=== PATIENT | male | born 1950 | race African-American/Black ===

== ENCOUNTER 2020-02-04 07:16 | Inpatient (IN) | payer OTHER ==
[2020-01-26 11:08] VITALS: BMI 25.7
[~2020-02-04 07:16] MED LIST: CELECOXIB 200 MG CAPSULE PO ONE; PANTOPRAZOLE 40 MG TABLET PO ONE; TRANEXAMIC ACID 1000 MG/10 ML VIAL IVPB ONE; VANCOMYCIN 1,000 MG VIAL (RESTRICTED TO ID ONLY) IVPB ONE; oxyCODONE HCL 10 MG SUSTAINED ACTING TABLET PO ONE
--- NOTE | 2020-02-04 07:34 | HP ---
Admitting History and Physical - Admission Chief Complaint: left knee osteoarthritis x years History of Present Illness: 69 year old male presents in regard to their left knee. Long-standing history of left knee osteoarthritis. Patient complains of pain, limited range of motion, difficulty ambulating, and difficulty with activities of daily living. Patient has failed conservative treatment options including PO medications, activity modification, injections, and exercise programs. At this point, patient like to proceed with surgical intervention, left total knee arthroplasty MAKOplasty. History Source: Patient - Past Medical History Cardiovascular: Yes: HTN, Mitral Stenosis Renal/: Yes: BPH Musculoskeletal: Yes: Osteoarthritis - Past Surgical History Additional Past Surgical History: See written history & physical. - Advance Directives Advance Directives: Yes: Health Care Proxy - Smoking History Smoking history: Never smoked Have you smoked in the past 12 months: No - Alcohol/Substance Use Hx Alcohol Use: Yes (RARELY) Home Medications - Allergies Allergies/Adverse Reactions: Allergies Allergy/AdvReac Type Severity Reaction Status Date / Time No Known Drug Allergies Allergy Verified 02/04/20 07:14 - Home Medications Home Medications: Ambulatory Orders Amlodipine Besylate 10 mg PO DAILY 01/26/20 Ibuprofen 800 mg PO ASDIR PRN 01/26/20 Tamsulosin HCl 0.4 mg PO HS 01/26/20 Review of Systems - Review of Systems Musculoskeletal: reports: Crepitus (left knee), Decreased ROM (left knee), Joint Pain (left knee), Joint Swelling (left knee) Physical Examination Vital Signs: Vital Signs Temperature 98.6 F 02/04/20 07:16 Pulse Rate 84 02/04/20 07:16 Respiratory Rate 16 02/04/20 07:16 Blood Pressure 124/75 02/04/20 07:16 O2 Sat by Pulse Oximetry (%) 97 02/04/20 07:26 Constitutional: Yes: Well Nourished, No Distress Eyes: Yes: Conjunctiva Clear HENT: Yes: Atraumatic Neck: Yes: Supple Cardiovascular: Yes: Regular Rate and Rhythm Respiratory: Yes: Regular Gastrointestinal: Yes: Soft ...Rectal Exam: Yes: Deferred Musculoskeletal: Yes: Joint Stiffness (left knee), Joint Swelling (left knee) Assessment/Plan 69 year old male presents in regard to their left knee. Long-standing history of left knee osteoarthritis. Patient complains of pain, limited range of motion, difficulty ambulating, and difficulty with activities of daily living. Patient has failed conservative treatment options including PO medications, activity modification, injections, and exercise programs. At this point, patient like to proceed with surgical intervention, left total knee arthroplasty MAKOplasty. Pros, cons, risks, benefits, and alternatives of a left total knee arthroplasty MAKOplasty were discussed with the patient at length. Patient confirms their understanding and consents to proceed with a left total knee arthroplasty MAKOplasty.
[2020-02-04] MEDS ORDERED: TRANEXAMIC ACID 1000 MG/10 ML VIAL IVPUSH ONE (08:28)
[2020-02-04] MEDS ORDERED: CEFAZOLIN 2 GM in DEXTROSE 5%-WATER - 50 ML IVPB ONE (08:28)
[2020-02-04] MEDS ORDERED: VANCOMYCIN 1,000 MG VIAL (RESTRICTED TO ID ONLY) IVPB ONE (11:15)
[2020-02-04] MEDS ORDERED: TRANEXAMIC ACID 1000 MG/10 ML VIAL IVPB ONE (11:30)
[2020-02-04] MEDS ORDERED: traMADol HCL 50 MG TABLET ONE (12:02)
[2020-02-04] MEDS ORDERED: KETOROLAC TROMETHAMINE 30 MG/1 ML VIAL ONE (12:02)
[2020-02-04] MEDS ORDERED: ACETAMINOPHEN INJECTION 100 ML IVPB ONE (12:03)
[2020-02-04] MEDS ORDERED: ACETAMINOPHEN 1000 MG/100 ML VIAL (NON FORMULARY) IVPB ONE (12:17)
[2020-02-04] MEDS ORDERED: MAGNESIUM HYDROX 2400MG/30ML ORAL SUSPENSION 30 ML CUP PO PRN (12:18)
--- NOTE | 2020-02-04 12:24 | OP ---
Operative Note - Note: Operative Date: 02/04/20 Pre-Operative Diagnosis: left knee OA Operation: left GARETT TKA Post-Operative Diagnosis: Same as Pre-op Surgeon: Jony Wild Program Production Specialist: Elvie Hendrix Anesthesia: Spinal Estimated Blood Loss (mls): 100
[2020-02-04] MEDS ORDERED: LACTATED RINGERS SOLUTION 1,000 ML IV SCH (12:30)
[2020-02-04] MEDS ORDERED: KETOROLAC TROMETHAMINE 30 MG/1 ML VIAL IVPUSH SCH (12:30)
[2020-02-04] MEDS ORDERED: traMADol HCL 50 MG TABLET PO SCH (12:30)
[2020-02-04] MEDS ORDERED: ONDANSETRON 4 MG/2 ML VIAL IVPUSH PRN (12:53)
[2020-02-04] MEDS ORDERED: oxyCODONE HCL 5 MG TABLET PO PRN ×2 (12:53)
[2020-02-04] MEDS ORDERED: PROMETHAZINE HCL 25 MG/1 ML VIAL IVPUSH PRN (12:53)
[2020-02-04] MEDS ORDERED: HYDROmorphone HCL CARPU-JECT 1 MG/1 ML DISP.SYRIN IVPB PRN (16:17)
[2020-02-04] MEDS: CEFAZOLIN 2 GM/D5W 2 GRAM/50 ML ML IVPB SCH (18:08)
--- NOTE | 2020-02-04 19:32 | SPEC ---
DATE OF OPERATION: 02/04/2020 PREOPERATIVE DIAGNOSIS: Left knee osteoarthritis. POSTOPERATIVE DIAGNOSIS: Left knee osteoarthritis. PROCEDURE: Left total knee replacement with MAKOplasty robotic navigation. ATTENDING: Sunita Anguiano MD BACTERIOLOGY TEACHER: JASON Cummins ANESTHESIA: Spinal plus sedation. ESTIMATED BLOOD LOSS: 100 mL COMPLICATIONS: None. DISPOSITION: The patient was transferred to the PACU in stable condition. IMPLANTS USED: Pana Triathlon size 6 femoral component, size 6 tibial component, 35-mm patellar component, 16-mm total stabilized polyethylene component. INDICATIONS: This is a 69-year-old male who presented to the office complaining of severe left knee pain. He was seen and examined by Dr. Anguiano and diagnosed with severe left knee osteoarthritis. The patient was initially treated conservatively with injections, medications, and physical therapy, but continued to have severe pain and ambulatory dysfunction. He was therefore indicated for a left total knee replacement. The risks, benefits, and alternatives to the procedure were explained to the patient in great detail. He elected to proceed with the surgery. DESCRIPTION OF PROCEDURE: On the day of surgery, the patient was taken to the operating room and placed on the OR table. Spinal anesthesia was administered by the anesthesiologist. The patient was then positioned supine on the table and all bony prominences were padded. The knee was then prepped and draped in the usual sterile fashion and intravenous antibiotics were given for infection prophylaxis. A surgical time-out was then performed with the team, and the patients identity, procedure, side, availability of implants, and the administration of antibiotics was confirmed. With the knee flexed, a midline incision was made and carried down through the subcutaneous fat to the underlying retinaculum. A medial parapatellar arthrotomy was performed. This was followed by a subperiosteal dissection of the tissue off the proximal, medial tibia. A portion of fat pad was removed from under the patellar tendon, and a small portion of fat was excised off the distal supracondylar femur. Electrocautery and an Aquamantys bipolar sealing device were used to achieve hemostasis. The knee was then flexed further and the anterior horn of the lateral meniscus was released from the midline. Next, the anterior and posterior cruciate ligaments were transected. Grade 4 changes were noted diffusely throughout the knee. Femoral and tibial checkpoints were then placed in the appropriate location using a mallet. Two parallel bicortical self-drilling pins were placed in the tibial diaphysis after making stab incisions and bluntly dissecting down to bone. Two pins were then placed in the distal supracondylar femur. The [employer] navigation arrays were then attached to both the femoral and tibial pins and the lower extremity was then registered to the robotic navigation device using various joint movements, as well as inputting several dozen reference points. The knee was then taken through a full range of motion with a corrective force applied. Alignment in varus/valgus as well as flexion/extension and soft tissue balance was measured in various positions. The navigation device showed a numerical and graphic representation of the soft tissue balance. The components were repositioned virtually using the software until optimal soft tissue balance was achieved on screen. Once this was accomplished, the final plan was saved and sent to the robot. Self-retaining retractors were then placed at the joint line for exposure and protection of the collateral ligaments. The robot was brought into the sterile field and registered with the navigation device. The robotic arm with attached oscillating saw blade was then used to perform femoral and tibial bone cuts as per the saved software plan. The femoral box cut was made using the appropriately sized manual cutting guide. The knee was then irrigated. Trial components were placed and the knee was taken through a full range of motion to assess soft tissue balance and alignment. The range of motion was found to be excellent and the soft tissue balance was optimal and according to plan. The knee was then put into extension and the patella everted. The synovium around the patella was circumscribed with electrocautery. A caliper was used to measure the patellar thickness and a saw was then used to resect the patella at the chondro-osseous junction. The cut surface was then sized and drilled for the appropriate patellar button, with care taken to medialize it. A trial patella was then placed and the knee was again taken through a full range of motion. The knee was found to have both good balance and good patellar tracking. All of the components were removed except the tibial base plate. The appropriate instrumentation was used to drill and punch the proximal tibia for the keel of the final component. All bony surfaces were then cleaned with pulsatile lavage and dried. Bone cement was then prepared on the back table, and final components were cemented in place in the usual fashion. Extruded cement was removed. The polyethylene trial was placed, the knee was put into extension, and axial pressure was applied for compression while the cement hardened. The patellar button was similarly cemented into place. Once the cement had hardened, the knee was taken through a full range of motion to assess stability, balance, and patellar tracking. This was found to be optimal and the trial polyethylene was exchanged for the appropriately sized real implant. The wound was then thoroughly irrigated with normal saline. A 3-minute dilute Betadine lavage was performed. The knee was again irrigated using a pulsatile lavage device. A periarticular injection was used to locally infiltrate the capsular tissues surrounding the implant and prosthesis. Then No. 1 Polysorb and 0 VLoc 180 barbed sutures were used to close the arthrotomy. Then No. 1 Polysorb and 2-0 VLoc 90 sutures were used in the subcutaneous tissues. Then 4-0 undyed Vicryl and Dermabond skin adhesive was used to close the stab incisions made for the navigation pins. The skin was closed using both 3-0 VLoc 90 suture in a running subcuticular fashion and Dermabond skin adhesive. Once this was completed a sterile Aquacel dressing and compressive Jagdish-wrap was applied. The patient was then awakened and taken to the PACU in stable condition. SUNITA ANGUIANO M.D. [id number]
[2020-02-04] MEDS: KETOROLAC TROMETHAMINE 30 MG/1 ML VIAL IVPUSH SCH (19:37)
[2020-02-04] MEDS: traMADol HCL 50 MG TABLET PO SCH (19:38)
[2020-02-04] MEDS: ACETAMINOPHEN 325 MG TABLET (FP) PO SCH (19:39)
[2020-02-04] MEDS ORDERED: DEXAMETHASONE SOD PHOSPHATE 10 MG/1 ML VIAL IVPB ONE (20:00)
[2020-02-04] MEDS: CELECOXIB 200 MG CAPSULE PO SCH (21:17)
[2020-02-04] MEDS: GABAPENTIN 300 MG CAPSULE PO SCH (21:17)
[2020-02-04] MEDS: ASCORBIC ACID 500 MG TABLET (FP) PO SCH (21:17)
[2020-02-04] MEDS: SENNOSIDES/DOCUSATE COMBO (SENNA PLUS) TABLET (UD) PO SCH (21:17)
[2020-02-04] MEDS: TAMSULOSIN HCL 0.4 MG CAP PO SCH (21:17)
[2020-02-04] MEDS: oxyCODONE HCL 10 MG SUSTAINED ACTING TABLET PO SCH (21:18)
[2020-02-04] MEDS: ONDANSETRON 4 MG/2 ML VIAL IVPUSH PRN (23:28)
[2020-02-05] MEDS: ACETAMINOPHEN 325 MG TABLET (FP) PO SCH ×4 (02:15→20:54)
[2020-02-05] MEDS: CEFAZOLIN 2 GM/D5W 2 GRAM/50 ML ML IVPB SCH (02:15)
[2020-02-05] MEDS: KETOROLAC TROMETHAMINE 30 MG/1 ML VIAL IVPUSH SCH ×2 (02:16→09:02)
[2020-02-05] MEDS: traMADol HCL 50 MG TABLET PO SCH ×4 (02:16→20:54)
[2020-02-05 07:46] LABS: HEMATOCRIT 36.1 % (35.4-49); HEMOGLOBIN 11.9 GM/dl (11.7-16.9); MCHC 32.9 g/dl (32.0-35.9); MEAN CELL VOLUME 88.1 fl (80-96); MEAN PLT VOLUME 9.8 fl (7.5-11.1); PLATELET COUNT 170 K/MM3 (134-434); WHITE BLOOD COUNT 8.2 K/mm3 (4.0-10.8)
[2020-02-05 07:53] LABS: POTASSIUM 3.9 mmol/L (3.5-5.1)
--- NOTE | 2020-02-05 08:43 | PN ---
Progress Note (short form) - Note Progress Note: POD1 s/p left TKR. Pt has minimal pain, relieved by PO pain meds. Able to ambulate without issue. No anesthetic complications/issues noted
[2020-02-05] MEDS: ASPIRIN 325 MG TABLET PO SCH (09:01)
[2020-02-05] MEDS: ASCORBIC ACID 500 MG TABLET (FP) PO SCH ×2 (10:08→21:04)
[2020-02-05] MEDS: SENNOSIDES/DOCUSATE COMBO (SENNA PLUS) TABLET (UD) PO SCH ×2 (10:09→21:05)
[2020-02-05] MEDS: GABAPENTIN 300 MG CAPSULE PO SCH ×2 (10:09→21:04)
[2020-02-05] MEDS: MULTIVITAMINS (DAILY MVI) TABLET (FP) PO SCH (10:09)
[2020-02-05] MEDS: PANTOPRAZOLE 40 MG TABLET PO SCH (10:09)
[2020-02-05] MEDS: oxyCODONE HCL 10 MG SUSTAINED ACTING TABLET PO SCH ×2 (10:10→21:04)
[2020-02-05] MEDS: CELECOXIB 200 MG CAPSULE PO SCH ×2 (10:10→21:05)
[2020-02-05] MEDS: amLODIPine BESYLATE 10 MG TABLET (FP) PO SCH (10:10)
[2020-02-05] MEDS: MAG HYDROX/AL HYDROX/SIMETH 30 ML UNIT-DOSE CUP PO PRN ×2 (13:41→21:05)
[2020-02-05] MEDS: ONDANSETRON 4 MG/2 ML VIAL IVPUSH PRN (13:41)
--- NOTE | 2020-02-05 20:39 | PN ---
Progress Note (short form) - Note Progress Note: Pt seen and examined. Doing well. AVSS Selected Entries 02/05/20 18:00 Temperature 97.9 F Pulse Rate 70 Respiratory 18 Rate Blood Pressure 111/61 O2 Sat by Pulse 99 Oximetry (%) Oxygen Delivery Room Air Method Laboratory Tests 02/05/20 02/05/20 06:45 06:45 WBC 8.2 Hgb 11.9 Hct 36.1 Plt Count 170 Sodium 136 Potassium 3.9 Chloride 104 Carbon Dioxide 25 Anion Gap 7 L BUN 9.0 Creatinine 1.0 Est GFR (CKD-EPI)AfAm 89.86 Est GFR (CKD-EPI)NonAf 77.54 Random Glucose 183 H Calcium 9.0 Gen: NAD LLE: c/d/i, NVID A/P POD#1 s/p L TKA PT/OOB D/C home in AM
--- NOTE | 2020-02-05 20:42 | DS ---
Physical Examination Vital Signs: Vital Signs Temperature 97.9 F 02/05/20 18:00 Pulse Rate 70 02/05/20 18:00 Respiratory Rate 18 02/05/20 20:11 Blood Pressure 111/61 02/05/20 18:00 O2 Sat by Pulse Oximetry (%) 99 02/05/20 20:11 Labs: CBC, BMP 02/05/20 06:45 02/05/20 06:45 Discharge Summary Problems reviewed: Yes Reason For Visit: LEFT KNEE OSTEOARTHRITIS Current Active Problems Osteoarthritis of left knee (Acute) Procedures: Principal: left GARETT TKA Hospital Course: Admitted for elective surgery. Procedure performed without complications. Pt received postoperative antibiotic prophylaxis and DVT ppx. Ambulated with physical therapy. Stable for discharge home with outpatient followup. Condition: Stable - Instructions Diet, Activity, Other Instructions: Dr. Wild - Knee Replacement Instructions Keep the Aquacel dressing on until removed by Dr. Wild in the office - it is antibacterial and waterproof and you can shower with it on. Call the office for a follow-up appointment with Dr. Wild in 2 weeks. [phone] Take one Aspirin 325mg daily for 6 weeks to prevent blood clots in your legs. Take one Pantoprazole 40mg daily for 6 weeks to protect against heartburn and ulcers. Take Cephalexin (antibiotic) 3x/day for 10 days to help prevent skin infection. Take Celebrex 200mg daily for 30 days to reduce swelling and inflammation. Take a multivitamin, stool softener, and extra Vitamin C supplement daily. For pain: *Mild pain (1-3/10): Take 1 Tramadol tablet every 4 hours as needed. Moderate pain (4-6/10): Take 1 Tramadol tablet and 1 Percocet tablet every 4 hours as needed. Severe pain (7-10/10): Take 1 Tramadol tablet and 2 Percocet tablets every 4 hours as needed. Activity: You can put as much weight on the operative leg as you want. Right after you get home, there will be a physical therapist coming to your house to help you walk around and bend/straighten your knee. After your follow-up appointment, you will be sent for more intensive outpatient physical therapy which will include machines and equipment that the home therapist cannot bring to your house. Always use a walker or cane for balance and to prevent falls. Expect to see swelling/bruising from the operative site all the way down to your toes. Wear the compression stocking on the operative side during the day to minimize how much swelling there is in your foot/ankle. Don't wear the stocking at night. You don't have to wear a stocking on the other side. Disposition: [facility]NS/HOME HEALTH CARE - Home Medications Comprehensive Discharge Medication List: Ambulatory Orders Amlodipine Besylate 10 mg PO DAILY 01/26/20 Tamsulosin HCl 0.4 mg PO HS 01/26/20 Ascorbic Acid [Vitamin C -] 500 mg PO BID tablet 02/05/20 Aspirin [ASA -] 325 mg PO DAILY@0800 tablet 02/05/20 Celecoxib [CeleBREX -] 200 mg PO DAILY #30 capsule 02/05/20 Cephalexin Monohydrate [Keflex -] 500 mg PO TID #30 capsule 02/05/20 Multivitamins [Multivit ([facility] Formul[facility])] 1 tab PO DAILY tab 02/05/20 Oxycodone HCl/Acetaminophen [Percocet 5-325 mg Tablet] 1 - 2 tab PO Q4H PRN #60 tablet MDD 10 02/05/20 Pantoprazole Sodium [Protonix -] 40 mg PO DAILY #40 tablet.ec 02/05/20 Sennosides/Docusate Sodium [Pericolace -] 2 tablet PO BID tablet 02/05/20 traMADol HCL [Ultram -] 50 mg PO Q4H PRN #42 tablet MDD 6 02/05/20
[2020-02-05] MEDS: TAMSULOSIN HCL 0.4 MG CAP PO SCH (21:04)
[2020-02-06] MEDS: ACETAMINOPHEN 325 MG TABLET (FP) PO SCH ×2 (06:24→07:25)
[2020-02-06] MEDS: traMADol HCL 50 MG TABLET PO SCH ×2 (06:24→08:55)
[2020-02-06] MEDS: ASPIRIN 325 MG TABLET PO SCH (07:25)
[2020-02-06 08:50] VITALS: TEMP 97.9
[2020-02-06 08:50] LABS: HEMATOCRIT 29.6 % (35.4-49); HEMOGLOBIN 9.6 GM/dl (11.7-16.9); MCH 28.7 pg (25.7-33.7); MCHC 32.6 g/dl (32.0-35.9); MEAN PLT VOLUME 9.7 fl (7.5-11.1); PLATELET COUNT 146 K/MM3 (134-434); RBC 3.36 M/mm3 (4.00-5.60); RDW 14.6 % (11.9-15.9); WHITE BLOOD COUNT 7.4 K/mm3 (4.0-10.8)
[2020-02-06] MEDS: MULTIVITAMINS (DAILY MVI) TABLET (FP) PO SCH (09:05)
[2020-02-06] MEDS: GABAPENTIN 300 MG CAPSULE PO SCH (09:05)
[2020-02-06] MEDS: oxyCODONE HCL 10 MG SUSTAINED ACTING TABLET PO SCH (09:05)
[2020-02-06] MEDS: PANTOPRAZOLE 40 MG TABLET PO SCH (09:05)
[2020-02-06] MEDS: SENNOSIDES/DOCUSATE COMBO (SENNA PLUS) TABLET (UD) PO SCH (09:06)
[2020-02-06] MEDS: ASCORBIC ACID 500 MG TABLET (FP) PO SCH (09:06)
[2020-02-06] MEDS: CELECOXIB 200 MG CAPSULE PO SCH (09:06)
[2020-02-06 10:18] VITALS: BP 112/71; PULSE 80
[2020-02-06] MEDS: amLODIPine BESYLATE 10 MG TABLET (FP) PO SCH (10:18)
--- NOTE | 2020-02-09 17:35 | PATH ---
Surgical Pathology Report Patient Name: CARMEN KAM Med. Rec. #: [id number] /Age/Gender: 1950 (Age: 69) / M Account: [id number] Location: [facility] MED-SURG Taken: 02/04/2020 Received: 02/04/2020 Reported: 02/09/2020 Physicians: Jony Wild M.D. Specimen(s) Received LEFT KNEE BONES Clinical History Left knee osteoarthritis Final Diagnosis BONES, KNEE, LEFT, TOTAL KNEE REPLACEMENT MAKOPLASTY: BONE WITH DEGENERATIVE JOINT DISEASE, DENSE FIBROCONNECTIVE TISSUE, AND FIBROADIPOSE TISSUE. Electronically Signed Judith Kauffman M.D. Gross Description Received in formalin labeled "left knee bones," is a 12.5 x 12.0 x 2.1 cm aggregate of multiple portions of bone and soft tissue, consistent with knee bones. There are multiple areas of eburnation present, measuring up to 2.8 cm in greatest dimension. The remaining articular surfaces are teran-brown and focally granular. The underlying trabecular bone is yellow and hard. Production Truck Driver sections are submitted in one cassette, following decalcification. /02/08/2020 saudi02/08/2020
== END 2020-02-06 13:10 | disposition home health service (06) | DRG 470 ==
LOC: FM/S 07:16
PROVIDERS: ADMIT Student in an Organized Health Care Education/Training Program; ATTEND Student in an Organized Health Care Education/Training Program
PROC: 8E0Y0CZ Robotic Assisted Procedure of Lower Extremity, Open Approach (ICD-10-PCS; 2020-02-04)
PROC: 0SRD0J9 Replacement of Left Knee Joint with Synthetic Substitute, Cemented, Open Approach (ICD-10-PCS; principal; 2020-02-04 09:11)
DX: M17.11 Unilateral primary osteoarthritis, right knee (principal); I10 Essential (primary) hypertension; I05.0 Rheumatic mitral stenosis; N40.0 Benign prostatic hyperplasia without lower urinary tract symptoms
CPT/HCPCS: 36415; 73560-TC-LT-FY; 80048; 85027; 88305-TC; 88311-TC; 94760; 97116-GP; 97163-GP; J0131; J1100